=== PATIENT | female | born 1955 | race African-American/Black ===

== ENCOUNTER 2017-12-20 07:56 | Outpatient (CLI) | payer BC, OTHER ==
--- NOTE | 2017-12-20 19:32 | RAD ---
RIGHT KNEE FOUR VIEWS: 12/20/17 Comparison is made with the 05/03/11 study. In the interval, the medial joint space has narrowed significantly more. Osteophytes have grown in si ze. No fracture are area of bony destruction was seen. There is no joint effusion. On the lateral vie w there is a large rounded bony object immediately posterior to the distal femur that is either a loo se body or bony osteophyte that is much larger than it was before. 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 IMPRESSION: Severe osteoarthritis which has advanced considerably since 2010. POS: HOME
== END 2017-12-20 07:57 | disposition home or self-care (01) ==
LOC: BURRAD 07:56
PROVIDERS: ATTEND Family Medicine
DX: M25.561 Pain in right knee (principal); M17.11 Unilateral primary osteoarthritis, right knee

== ENCOUNTER 2022-09-12 09:03 | Outpatient (CLI) | payer MEDICARE, BC ==
[2022-09-12] MEDS ORDERED: Iopamidol 370 76% 100 ML VIAL ONE (17:00)
== END 2022-09-12 09:04 | disposition home or self-care (01) ==
LOC: BURCT 09:03
PROVIDERS: ATTEND Family Medicine
DX: K57.92 Diverticulitis of intestine, part unspecified, without perforation or abscess without bleeding (principal); K59.00 Constipation, unspecified; K44.9 Diaphragmatic hernia without obstruction or gangrene
CPT/HCPCS: 74177; Q9967